=== PATIENT | male | born 2000 | race Caucasian/White ===

== ENCOUNTER 2019-01-25 20:31 | Emergency (ER) | payer SELFPAY ==
[2019-01-25] MEDS: HYDROcodone /APAP 5/325 1 EACH TABLET PO ONE (22:06)
--- NOTE | 2019-01-25 22:06 | ED Physician Documentation ---
Upper Extremity Injury - HPI Stated Complaint: right wrist pain Chief Complaint: Upper Extremity Injury Additional Information: Patient presents to ED with right wrist pain after slipping and falling on the ice at work. Patient presents to ED with obvious deformity of right wrist. Onset: just prior to arrival Where: work Severity: moderate Duration: persistent since Context: fall Associated Symptoms: denies: tingling, numbness distally, feeling loss Modifying Factors: pain on movement - ROS CONST: no problems CVS/RESP: none NEURO: none MS/SKIN/LYMPH: none GI/: denies: nausea - PAST HX Past History: Rt handed Allergies/Adverse Reactions: Allergies Allergy/AdvReac Type Severity Reaction Status Date / Time No Known Allergies Allergy Verified 01/25/19 20:46 Home Medications: Ambulatory Orders Medication Instructions Recorded NK 01/25/19 - SOCIAL HX Smoking History: non-smoker Alcohol Use: none Drug Use: none - FAMILY HX Family History: none - VITAL SIGNS Vital Signs: Vital Signs Temp Pulse Resp BP Pulse Ox 98.2 F 90 20 139/77 97 01/25/19 20:41 01/25/19 20:41 01/25/19 20:41 01/25/19 20:41 01/25/19 20:41 - REVIEWED ASSESSMENTS Nursing Assessment Reviewed: Yes Vitals Reviewed: Yes Progress - Results/Orders Results/Orders: Report Submission Date: Jan 25, 2019 9:31:00 PM [employer] Patient Study Name: BETITO PHELAN NR Date: Jan 25, 2019 9:08:25 PM [employer] Modality Type: DX Gender: M Description: WRIST 3 VIEWS OR MORE : 99 Institution: [facility] Physician: MANOJ GARCIA Right wrist 3 views Date of Exam: January 25, 2019. History: RT WRIST PAIN, FALL (Hx) / Findings: Fractures of the distal right radius and ulna are present. Distal radial shaft is fractured with minimal angulation and no significant displacement. The radiocarpal alignment is maintained. There is a nondisplaced fracture of the ulnar styloid. The carpal bones and metacarpals appear intact. Impression: Nondisplaced distal right radius and ulna fractures. Electronically signed on Jan 25, 2019 9:31:00 PM [employer] by: Brittney Davies - Progress Progress: 2200 Discussed with chase De Anda, he states the wrist needs reduced. Recommends transfer to ER at [facility]. ED Results Lab/Radiology - Orders Orders: ED Orders Category Date Time Status Single Sugar Tong Splint 1T Care 01/25/19 21:44 Active WRIST 3 VIEWS OR MORE [RAD] Stat Exams 01/25/19 Taken HYDROcodone /APAP 5/325 [[place] 5/325] Med 01/25/19 21:43 Discontinued 1 each PO NOW ONE Upper Extremity Injury Physic - Physical Exam General Appearance: no acute distress, alert Hand: normal inspection, non-tender Wrist: bone tenderness, deformity, limited ROM, soft tissue tenderness, swelling Elbow/Forearm: normal inspection Shoulder: normal inspection Neuro/Vascular/Tendon: no vascular compromise, motor nml, sensation nml Skin: warm,dry Head/ENT: nml inspection Neck/Back: nml inspection Resp/CVS: chest non-tender, breath sounds nml, heart sounds nml Abdomen: non-tender. No: tenderness Discharge Clincal Impression: Distal radius fracture, right Qualifiers: Encounter type: initial encounter Fracture type: closed Fracture morphology: other fracture Qualified Code(s): S52.591A - Other fractures of lower end of right radius, initial encounter for closed fracture Referrals: Primary Doctor,No [Primary Care Provider] - 2 Days Additional Instructions: 1. Patient was transferred to [facility] ER. chase De Anda will be evaluating patient upon arrival. Condition: Stable Disposition: XFER SHT-TRM HOSP Decision to Admit: [id number] Date of Decison to Admit: 01/25/19 Decision Time: 22:13
[2019-01-25 22:38] VITALS: BP 118/78
--- NOTE | 2019-01-26 06:20 | Diagnostic Imaging Report ---
MANOJ GARCIA [facility] [id number] [facility] [address] [place] [id number] Report Submission Date: Jan 25, 2019 9:31:00 PM EXHIBITS COORDINATOR Patient Study Name: BETITO PHELAN NR Date: Jan 25, 2019 9:08:25 PM EXHIBITS COORDINATOR Modality Type: DX Gender: M Description: WRIST 3 VIEWS OR MORE : 99 Institution: [facility] Physician: MANOJ GARCIA Right wrist 3 views Date of Exam: January 25, 2019. History: RT WRIST PAIN, FALL (Hx) / Findings: Fractures of the distal right radius and ulna are present. Distal radial shaft is fractured with minimal angulation and no significant displacement. The radiocarpal alignment is maintained. There is a nondisplaced fracture of the ulnar styloid. The carpal bones and metacarpals appear intact. Impression: Nondisplaced distal right radius and ulna fractures. Electronically signed on Jan 25, 2019 9:31:00 PM EXHIBITS COORDINATOR by: Brittney GALVEZ
== END 2019-01-25 22:31 | disposition short-term general hospital (02) ==
LOC: ED 20:31
DX: S52.501A Unspecified fracture of the lower end of right radius, initial encounter for closed fracture (principal); S52.614A Nondisplaced fracture of right ulna styloid process, initial encounter for closed fracture; W00.9XXA Unspecified fall due to ice and snow, initial encounter; Y93.9 Activity, unspecified; Y92.89 Other specified places as the place of occurrence of the external cause; Y99.0 Civilian activity done for income or pay
CPT/HCPCS: 29125; 73110; 99285; A9270